=== PATIENT | male | born 1955 | race Caucasian/White ===

== ENCOUNTER 2016-11-24 14:02 | Emergency (ER) | payer MEDICAID ==
[2016-11-24 14:17] VITALS: O2SAT 94
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
[2016-11-24 16:06] VITALS: BP 116/84; PULSE 63; RESP 15; TEMP 98.8
== END 2016-11-24 16:06 | disposition home or self-care (01) ==
DX: S63.502A Unspecified sprain of left wrist, initial encounter (principal); I10 Essential (primary) hypertension; F17.200 Nicotine dependence, unspecified, uncomplicated; Z91.040 Latex allergy status; W19.XXXA Unspecified fall, initial encounter
CPT/HCPCS: L3807; L3908

== ENCOUNTER → 2017-01-12 | Outpatient (CLI) | payer MEDICAID | LOC: FIMAGING 11:19 | PROVIDERS: ATTEND Internal Medicine Rheumatology | DX: Z13.820 Encounter for screening for osteoporosis (principal); M85.80 Other specified disorders of bone density and structure, unspecified site; Z72.0 Tobacco use ==

== ENCOUNTER → 2017-09-16 | Outpatient (CLI) | payer MEDICAID ==
--- NOTE | 2017-09-17 08:56 | CPEKG ---
Heart Rate: 74 RR Interval: 811 P-R Interval: 168 QRSD Interval: 96 QT Interval: 388 QTC Interval: 431 P Moody: 77 QRS Moody: 73 T Wave Moody: 48 EKG Severity - OTHERWISE NORMAL ECG - EKG Impression: SINUS RHYTHM EKG Impression: ATRIAL PREMATURE COMPLEX Electronically Signed By: Prieto Garcia 18-Sep-2017 07:01:36
== END ==
LOC: FPAT 14:08
PROVIDERS: ATTEND Internal Medicine Gastroenterology
DX: Z01.810 Encounter for preprocedural cardiovascular examination (principal)

== ENCOUNTER 2017-10-04 11:15 | Day surgery (SDC) | payer MEDICAID ==
[2017-10-04] MEDS ORDERED: LR 1,000 ML IV ONE (11:49)
[2017-10-04] MEDS ORDERED: fentaNYL 100 MCG/2 ML INJ IVP PRN ×2 (13:28→13:36)
[2017-10-04] MEDS ORDERED: ONDANSETRON 4 MG/2 ML VIAL IVP PRN (13:36)
[2017-10-04] MEDS ORDERED: NALOXONE HCL 0.4 MG/ML INJ IVP PRN (13:36)
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
[2017-10-04] MEDS ORDERED: fentaNYL 100 MCG/2 ML INJ ONE (13:39)
[2017-10-04] MEDS ORDERED: PROPOFOL 200 MG/20 ML VIAL ONE (13:40)
[2017-10-04] MEDS ORDERED: PROPOFOL/EMULSION 500 MG/50 ML BOTTLE IV ONE (13:40)
[2017-10-04] MEDS ORDERED: LIDOCAINE 2% 5 ML SDV ONE (13:40)
[2017-10-04] MEDS ORDERED: INDOMETHACIN 50 MG SUPP PR PRN (13:42)
--- NOTE | 2017-10-04 13:42 | PDGENHP ---
History & Physical Chief Complaint: subepithelial lesion History of Present Illness: 62 year old male presents for evaluation of a subepithelial lesion in stomach. Hx of colonic adenomas. Pertinent Past, Social, Family History: PMHx: Hep c, htn. PSurHx: Splenectomy Relevant Physical Exam: HEENT: anicteric. CV: RRR +s1s2. Lungs: CTAB. Abd: soft, nt, + Bs Cardiorespiratory Assessment: ASA 3
[2017-10-04] MEDS ORDERED: NS 500 ML IV SCH (13:45)
--- NOTE | 2017-10-04 14:46 | GIREPORT ---
[facility] Surgical Services - Endoscopy Department Patient Name: Sav Casas Procedure Date: 10/04/2017 2:04 PM Patient Type: Outpatient Attending MD/ ER Physician: Arturo Arias MD Procedure: Colonoscopy Indications: High risk colon cancer surveillance: Personal history of colonic polyps Patient Profile: 62 year old male with a history of polyps presents for surveillance colonoscopy. Providers: Arturo Arias MD Medicines: Monitored Anesthesia Care Complications: No immediate complications. Description of Procedure: After obtaining informed consent, the scope was passed under direct vis ion. Throughout the procedure, the patient's blood pressure, pulse, and oxyg en saturations were monitored continuously. The Colonoscope with irrigatio n channel was introduced through the anus and advanced to the cecum, identified by appendiceal orifice and ileocecal valve. The colonoscopy was performed without difficulty. The patient tolerated the procedure well. The quality of the bowel preparation was adequate to identify polyps. The ileocecal valve, appendiceal orifice, and rectum were photographed. Findings: The perianal and digital rectal examinations were normal. Pertinent negatives include no palpable rectal lesions. Diverticula were found in the sigmoid colon and descending colon. A 3 mm polyp was found in the rectum. The polyp was sessile. The polyp was removed with a cold biopsy forceps. Resection and retrieval were comple te. Estimated Blood Loss: Estimated blood loss: none. Post Op Diagnosis: - Diverticulosis in the sigmoid colon and in the descending colon. Recommendation: - Discharge patient to home (with escort). - Resume previous diet. - Continue present medications. - Repeat colonoscopy in 5 years for surveillance. - Use fiber, for example Citrucel, Fibercon, Konsyl or Metamucil. - Thank you for allowing me to participate in the care of your patient. Attending Participation: I personally performed the entire procedure. Arturo Arias MD Arturo Arias MD 10/04/2017 2:45:33 PM This report has been signed electronicallyArturo Arias MD Number of Addenda: 0 Note Initiated On: 10/04/2017 2:04 PM Total Procedure Duration Time 0 hours 18 minutes 49 seconds [email or web address]
[2017-10-04] MEDS ORDERED: ONDANSETRON 4 MG/2 ML VIAL ONE (15:39)
[2017-10-04 16:08] VITALS: BP 130/85
--- NOTE | 2017-10-04 16:23 | GPN ---
[f rep st] PROCEDURE NOTE DATE OF PROCEDURE: 10/04/2017 PROCEDURE: Esophagogastroduodenoscopy with biopsy, endoscopic ultrasound. INDICATIONS: The patient is a 62-year-old male who presents for evaluation of a subepithelial lesion in the stomach. He presents for further evaluation. CONSENT: Risks, benefits and alternatives of the procedure were discussed in great detail with the patient. Risk of infection, bleeding, perforation, and sedation were discussed. All questions answered. Informed consent obtained. MEDICATIONS: Propofol. Please see Anesthesia record for details. ESTIMATED BLOOD LOSS: Insignificant. ESOPHAGOGASTROSCOPY EXAMINATION: The Olympus upper endoscope was inserted into the mouth and advanced to the esophagus. The proximal,mid, and distal esophagus was normal in appearance. The stomach was entered and closely examined including retroflexed views of angularis, cardia and fundus. The mucosa in the antrum and body of the stomach was erythematous in a patchy distribution. Biopsies were taken to rule out H pylori. On the anterior wall in the antrum of the stomach, a 1 cm subepithelial lesion was seen. It had a central indentation. The mucosa covering the lesion was normal in appearance. Tattoo sanchez were seen around the lesion. Another subepithelial lesion was seen in the body of the stomach along the greater curvature that measured approximately 1 cm. The mucosa covering the lesion was normal in appearance. Tattoo sanchez were seen around the lesion. The duodenal bulb and second portion of the duodenum were normal in appearance. ENDOSCOPIC ULTRASOUND EXAMINATION: The Olympus linear echoendoscope was inserted in the mouth and advanced to the second portion of the duodenum. The esophagus, stomach, and duodenum were visualized endosonographically. The pancreas was carefully examined from the uncinate process to the tail. The pancreatic duct wall was hyperechoic and dilated side branches were noted. The lesion in the antrum and stomach was examined. It was mixed hypoechoic/ hyperechoic. It measured approximately 10.1 mm x 8.5 mm. The same size as on previous examination. Due to the stablity of the lesion It was decided not to FNA the lesion. On the greater curvature another lesion was seen. It measured approximately 1 cm and was hyperechoic consistent with a lipoma. No suspicious periportal, peripancreatic, or periesophageal lymph nodes were appreciated. No obvious liver lesions seen. IMPRESSION: 1. Stability of subepithelial lesions in the stomach. 2. Gastritis status post biopsy. RECOMMENDATIONS: 1. Followup on biopsy results. 2. Due to terminal block assembler stability of lesion, cessation of surveillance. 3. Proceed with colonoscopy. /[id number]/MODL [email or web address]
== END 2017-10-04 16:10 | disposition home or self-care (01) ==
LOC: FSGY 11:15
PROVIDERS: ATTEND Internal Medicine Gastroenterology
PROC: 0DBE8ZX Excision of Large Intestine, Via Natural or Artificial Opening Endoscopic, Diagnostic (ICD-10-PCS; principal; 2017-10-04 13:45)
PROC: 0DB68ZX Excision of Stomach, Via Natural or Artificial Opening Endoscopic, Diagnostic (ICD-10-PCS; principal; 2017-10-04 13:45)
DX: Z12.11 Encounter for screening for malignant neoplasm of colon (principal); K29.70 Gastritis, unspecified, without bleeding; R85.613 High grade squamous intraepithelial lesion on cytologic smear of anus (HGSIL); I10 Essential (primary) hypertension; B19.20 Unspecified viral hepatitis C without hepatic coma; F17.200 Nicotine dependence, unspecified, uncomplicated; Z86.010 Personal history of colon polyps
CPT/HCPCS: J2405; J2704; J3010

== ENCOUNTER 2018-07-19 11:53 | Emergency (ER) | payer MEDICAID ==
--- NOTE | 2018-07-19 12:32 | EDPHY ---
General Time Seen by Provider: 07/19/18 12:31 Narrative: CLINICAL IMPRESSION: URI, cough ASSESSMENT/PLAN: Patient is a 63-year-old male with a significant medical history psoriatic arthritis, hepatitis-C, osteoarthritis and seizure disorder who presents with complaints of runny nose, congestion, cough and mild headache. Patient is afebrile, in no acute distress and nontoxic appearing. His vital signs were reviewed and no findings to suggest sepsis or serious bacterial illness. Laboratory studies were obtained including influenza which was negative. CXR revealed no evidence of consolidation or pneumonia, findings consistent with COPD/emphysema. The patient's symptoms have actually been improving over the last several days, I did not feel additional testing to include laboratory studies was warranted at this time in light of benign exam and normal vital signs. History and physical examination is most consistent with upper respiratory infection and cough, likely viral in nature. There is no evidence of significant sinusitis, meningitis, pneumonia, influenza or serious bacterial illness. The patient was given a DuoNeb with improvement of his symptoms. The patient will continue to be treated symptomatically and is instructed to followup with PCP for reevaluation within the next 2-3 days. On re-examination prior to discharge this patient is stable and well-appearing, his abdomen is soft and non-tender, no petechial rash and his neck supple. The patient is well established with PCP Dr. Boland at [facility], we discussed the importance of close follow-up. Strict return precautions discussed-the patient will return for significantly worsening symptoms, high fevers, neck stiffness, difficulty swallowing, chest pain, shortness of breath, signs of dehydration or for any other concerning symptom. The patient verbalizes understanding and he is in agreement with this plan DIFFERENTIAL DX: Differential diagnosis including but not limited to and in no particular order sinusitis, pneumonia, influenza, respiratory virus, meningitis ED COURSE: 1308: Case discussed with Dr. Martinez 1410: Chest x-ray findings suggestive of COPD and emphysema, no evidence of consolidation or pneumonia. CHIEF COMPLAINT: Runny nose, congestion, cough HPI: Patient is a 63-year-old male with a significant history of psoriatic arthritis , hepatitis C, Osteo arthritis and seizure disorder who presents to the emergency department with complaints of runny nose, congestion, cough and generally feeling unwell. Patient reports 4 days ago he started to develop runny nose, congestion and a mild cough. Two days ago he had some associated nausea, vomiting and diarrhea which has since resolved. He feels like his coughing is getting worse, it is productive. He is a current every day smoker, does have a history of pneumonia. Patient has also been experiencing some mild headache, feels that his joints are little more stiff than normal, denies any significant neck stiffness or immobility. He denies any chest pain, shortness of breath or abdominal pain. He has had no fever however felt warm initially when his symptoms started. His appetite has been lower than normal however he is still eating and drinking without difficulty. He denies any urinary symptoms , bowel movements have normalized since his diarrhea 2 days ago. Patient lives at home independently with his cat. Patient does report that his symptoms are improving, his friend was concerned and recommended that he come to the emergency department for further evaluation. PMH: Psoriatic arthritis, hepatitis-C, osteoarthritis, seizure disorder Family History: Noncontributory Social History: Current everyday smoker, denies illicit drug use or alcohol use Primary care provider is at [facility] REVIEW OF SYSTEMS: All other systems negative Constitutional: Mildly diminished appetite. No fever, no chills. Eyes: No discharge, vision change ENT: Runny nose and congestion. No sore throat or ear pain. Cardiovascular: No chest pain, no palpitations. Respiratory: No cough, no shortness of breath. Gastrointestinal: No abdominal pain, no vomiting, diarrhea. Genitourinary: No hematuria, dysuria, flank pain, pelvic pain Musculoskeletal: Chronic joint pain. No joint swelling or myalgias. Skin: No rashes, color change. Neurological: Headache No weakness. PHYSICAL EXAM: General Appearance: Patient is elderly, thin, not toxic-appearing. HENT: Normocephalic, atraumatic. Bilateral external ears are normal. Bilateral tympanic membranes are normal with pearly holliday reflex. Nares are clear, mucosa is pink. Oropharynx is clear, uvula is midline. There is no tonsillar enlargement or exudate. Eyes: PERRLA, no acute vision change, nystagmus, swelling, discharge, pain or photosensitivity. Conjunctiva pink, no pallor or injection. Neck: Supple, nontender, no lymphadenopathy, no midline pain, bilateral paraspinal muscle tenderness, limited range of motion which is at his baseline, no meningismus. Respiratory: There are no retractions, faint expiratory wheeze bilaterally. Cardiac: Regular rate and rhythm, no murmurs or gallops. Gastrointestinal: Abdomen is soft, nontender, bowel sounds normal, no masses/ hernia, no rigidity, guarding or focal peritoneal findings. Neurological: Alert and oriented x 3, CN 2-12 grossly intact, normal gait no ataxia, DTR's intact, normal sensation and strength Skin: Warm, dry, no rashes, no nodules on palpation. Musculoskeletal: Extremities are symmetrical, full range of motion, no tenderness, deformity, swelling, or erythema. Psychiatric: Patient is oriented X 3, there is no agitation. MEDICAL DECISION MAKING: Patient was seen independently. Secondary supervising physician at time of evaluation was Dr. Martinez, he did not evaluate this patient. Diagnosis: URI, cough. New, requires workup Summary: See Assessment and Plan for summary of ED visit Clinical lab tests: ordered / reviewed. Independent visualization of images, tracing, or specimens: Yes. Decision to obtain medical records or history from someone other than the patient: No Review / Summarize previous medical records: Yes Discussed patient with another provider: Yes, Dr. Martinez Patient Progress: Stable, discharge. - Diagnostics Imaging Results: Imaging Impressions Chest X-Ray 07/19/18 12:59 Impression: COPD/emphysema. No pneumonia. - History Smoking Status: Current some day smoker - Objective Vital Signs: Initial Vital Signs Temperature (C) 36.7 C 07/19/18 12:11 Heart Rate 78 07/19/18 12:11 Respiratory Rate 18 07/19/18 12:11 Blood Pressure 127/89 H 07/19/18 12:11 O2 Sat (%) 96 07/19/18 12:11 O2 Delivery Mode Room Air Allergies/Adverse Reactions: etanercept [From Enbrel] Allergy (Severe, Verified 09/15/17 19:27) Hives acetaminophen [From Tylenol] Allergy (Unknown, Verified 09/15/17 19:27) Other-Enter Comments latex Allergy (Verified 09/15/17 19:27) NSAIDS (Non-Steroidal Anti-Inflamma Allergy (Verified 09/15/17 19:27) Other-Enter Comments Penicillins Allergy (Verified 09/15/17 19:28) Swelling/neck,face,throat sulfasalazine Allergy (Verified 09/15/17 19:27) Unknown Home Medications: Medication Instructions Recorded Amlodipine Besylate 07/19/18 Apremilast 07/19/18 Cyclobenzaprine 07/19/18 Keppra 07/19/18 Lyrica 07/19/18 MORPHINE SULFATE 07/19/18 Omeprazole 07/19/18 Oxycodone HCl 07/19/18 Zoledronic Acid 07/19/18 Laboratory Results: 07/19/18 12:20 Nasal Influenza A PCR NEGATIVE FOR FLU A (NEGATIVE) Nasal Influenza B PCR NEGATIVE FOR FLU B (NEGATIVE) Medications Given: Discontinued Medications Albuterol/Ipratropium (Duoneb) 3 ml IH EDNOW ONE Stop: 07/19/18 13:00 Last Admin: 07/19/18 13:40 Dose: 3 ml Departure - Departure Disposition: Home, Routine, Self-Care Clinical Impression: URI with cough and congestion Condition: Good Instructions: Upper Respiratory Infection (ED) Additional Instructions: DISCHARGE INSTRUCTIONS FROM YOUR DOCTOR Thank you for visiting our emergency department today. Please keep in mind that discharge from the emergency department does not mean that there is nothing wrong - it simply means that we have not identified an emergency condition that requires further evaluation or treatment in the hospital. You should always plan to follow up with primary care for re-evaluation of your condition in the next 2-3 days. Please stop smoking. Rest, push non-diuretic, non-caffeinated fluids, consume a healthy diet, all to help support your immune system fight infection. Consider running a coolmist humidifier in the bedroom. Consider over the counter saline nasal washes ie: Neilmed sinus rinse, [place] or [place]. Consider over the counter Mucinex for congestion and/or cough as directed. As discussed, in the setting of a viral illness, you may develop a secondary bacterial infection, requiring an antibiotic. Watch for new or changing symptoms ie: new ear pain or drainage, increasing cough, shortness of breath, high fever, or any other concerning symptoms. Schedule a follow-up appointment with your primary care physician in the next 2- 3 days for re-evaluation, sooner for any new concerns. Return for high fever, shaking chills, severe headache, facial redness or swelling, drainage from your ears, difficulty breathing or swallowing, throat tightness, drooling, change in voice, inability to open your mouth normally, severe neck pain, neck stiffness, shortness of breath, wheezing, noisy breathing , coughing up blood, chest pain, vomiting, diarrhea, bloody stools, decreased urine output or other concerns for dehydration, bloody urine, rash, dizziness, weakness, fainting, or for any other new, worsening or worrisome symptoms. People present with illnesses and injuries in different ways, and it is always possible that we have missed something. You may always return for re-evaluation if symptoms worsen or if they are not improving or if you develop new/different symptoms. Again, thank you for choosing our emergency department. We hope that you feel better. Referrals: Indira Boland MD [Primary Care Provider] - 1-2 days without fail
[2018-07-19] MEDS ORDERED: IPRATROPIUM/ALBUTEROL 3 ML DEYVIAL IH ONE (12:59)
[2018-07-19 15:24] VITALS: BP 124/76
== END 2018-07-19 15:23 | disposition home or self-care (01) ==
DX: J06.9 Acute upper respiratory infection, unspecified (principal); B19.20 Unspecified viral hepatitis C without hepatic coma